=== PATIENT | male | born 1985 ===

== ENCOUNTER 2020-10-22 07:27 | Outpatient (CLI) | payer OTHER ==
--- NOTE | 2020-10-22 08:25 | Ultrasound Report ---
Limited abdominal ultrasound INDICATION: Ultrasound imaging is requested to evaluate for ventral hernia. FINDINGS: Fat-containing paraumbilical hernia is noted. The herniated fat measures approximately 7 x 4 x 6 cm. There are no abnormal fluid collections. IMPRESSION: There is evidence of a fat-containing paraumbilical hernia. Signer Name: Frantz Samson MD Signed: 10/22/2020 8:20 AM Workstation Name: [id number]
== END 2020-10-22 07:28 | disposition home or self-care (01) ==
LOC: EEVIPCON 07:27 → US 07:27
PROVIDERS: ATTEND Specialist
DX: K42.0 Umbilical hernia with obstruction, without gangrene (principal)
CPT/HCPCS: 76705